=== PATIENT | female | born 1965 | race Caucasian/White ===

== ENCOUNTER → 2020-10-17 20:24 | Outpatient (CLI) | payer MEDICARE, SELFPAY ==
[2020-10-17 20:48] LABS: Basophils # 0.1 K/mm3 (0-0.2); Eosinophils # 0.3 K/mm3 (0.0-0.4); Hematocrit 46.2 % (37.0-47.0); Hemoglobin 15.6 g/dL (12.2-16.2); Lymphocytes # 4.5 K/mm3 (0.7-4.5); Lymphocytes % 48.3 % (10-50); Mean Corpuscular HGB Conc 33.7 g/dL (31.8-35.4); Mean Corpuscular Hemoglobin 32.3 pg (27.0-31.2); Mean Platelet Volume 8.4 fl (7.4-10.4); Monocytes # 0.5 K/mm3 (0.1-1.0); Monocytes % 5.4 % (1.7-9.3); Neutrophils % 42.2 % (37.0-80.0); Platelet Count 254 K/mm3 (142-424); Red Blood Count 4.81 M/mm3 (4.20-5.40); Red Cell Distribution Width 14.2 % (11.5-17.5); White Blood Count 9.4 K/mm3 (4.8-10.8)
[2020-10-17 21:16] LABS: Alanine Aminotransferase 18 U/L (12-78); Albumin Level 4.7 g/dl (3.5-5.0); Albumin/Globulin Ratio 1.3 (1.1-1.8); Alkaline Phosphatase 121 U/L (38-126); Anion Gap 14.1 mEq/L (5-15); Aspartate Amino Transferase 33 U/L (14-36); Bilirubin,Total 0.7 mg/dl (0.2-1.3); Blood Urea Nitrogen 19 mg/dl (7-17); Calcium 10.1 mg/dl (8.4-10.2); Carbon Dioxide 30 mmol/L (22.0-30.0); Chloride 96 mmol/L (98-107); Estimated Glomerular Filt Rate 34 ml/min (>60); GFR (African American) 41 ML/MIN (>60); Globulin 3.5 g/dL (1.3-3.2); Glucose 78 mg/dl (74-100); HDL Cholesterol 44 mg/dl (40-60); Magnesium 2.1 mg/dl (1.6-2.3); Potassium 5.1 mmoL/L (3.5-5.1); Sodium 135 mmol/L (136-145); Total Protein,Serum 8.2 g/dl (6.3-8.2); Triglycerides 236 mg/dl (30-150); Uric Acid 8.6 mg/dl (2.5-6.2); VLDL Cholesterol 47 mg/dL (0-40)
[2020-10-17 21:24] LABS: Chol/HDL Ratio 7.9 (1-3.5); Cholesterol 349 mg/dl (140-200)
[2020-10-17 21:27] LABS: C-Reactive Protein 10.2 mg/L (0-4)
[2020-10-17 21:47] LABS: Thyroid Stimulating Hormone 2.55 uIU/mL (0.465-4.68)
[2020-10-17 22:05] LABS: Vitamin B12 315 pg/mL (239-931)
[2020-10-17 22:12] LABS: Erythrocyte Sedimentation Rate 12 mm/hr (0-30)
[2020-10-19 15:59] LABS: Anti-Centromere B Antibodies <0.2 AI (0.0-0.9); Anti-DNA (DS) Ab Qn 3 IU/mL (0-9); Anti-Jo-1 <0.2 AI (0.0-0.9); Anti-Smith Antibody <0.2 AI (0.0-0.9); Antichromatin Antibodies <0.2 AI (0.0-0.9); Antiscleroderma-70 Antibodies <0.2 AI (0.0-0.9); RNP Antibodies <0.2 AI (0.0-0.9); Sjogren's Anti-SS-A <0.2 AI (0.0-0.9); Sjogren's Anti-SS-B <0.2 AI (0.0-0.9)
[2020-10-23 20:09] LABS: 1,25 Dihydroxy Vitamin D 40 pg/mL (.); 1,25-Dihydroxy, Vitamin D-2 <10 pg/mL (.); 1,25-Dihydroxy, Vitamin D-3 40 pg/mL (.)
== END ==
PROVIDERS: Visit Provider Nurse Practitioner Family
DX: R25.2 Cramp and spasm (principal); E78.2 Mixed hyperlipidemia
CPT/HCPCS: 80053; 80061; 82607; 82652; 83735; 84436; 84443; 84550; 85025; 85651; 86140; 86225; 86235

== ENCOUNTER → 2020-11-07 15:36 | Outpatient (CLI) | payer MEDICARE, SELFPAY ==
--- NOTE | 2020-11-07 15:36 | MM_ITS ---
PROCEDURE: MM DIG SCREENING MAMM BI W/CAD Digital Breast Tomosynthesis Included CLINICAL INDICATION: screening COMPARISON: MG SCREENING DIGITAL W/CAD,BILAT from 11/18/2017 MG DIAGNOSTIC DIGITAL RT(XTRA) from 12/16/2017 MG SCREENING DIGITAL W/CAD,BILAT from 10/26/2019 TECHNIQUE: Standard CC and MLO images and 3D Tomosynthesis was obtained. R2 CAD reviewed. FINDINGS: Average fibroglandular tissue. There are bilateral benign-appearing nodules and benign-appearing calcifications. Asymmetric density is present in the outer aspect of the right breast and is unchanged dating back to 11/18/2017. No malignant appearing mass or malignant-appearing microcalcification. IMPRESSION: Benign findings. BI-RAD Category: 2 Benign Finding FOLLOW-UP: 1 YR 1 Year Follow-up (A letter has been sent to the patient regarding results of the study.) Dictated by: Damion Lockhart MD 11/22/2020 11:54 Damion Lockhart MD in [place] 11/22/2020 11:54
== END ==
PROVIDERS: PCP Nurse Practitioner Family; Visit Provider Nurse Practitioner Family
DX: Z12.31 Encounter for screening mammogram for malignant neoplasm of breast (principal)
CPT/HCPCS: 77063; 77067

== ENCOUNTER → 2020-11-09 05:40 | Outpatient (CLI) | payer MEDICARE, SELFPAY ==
--- NOTE | 2020-11-09 | CA_ITS ---
APPROVED REPORT Exam: Pharmacologic Technologist: tammi rodríguez, Ht: 5 ft 8 in Wt: 183 lbs BSA: 1.97 m2 HR: 72 bpm BP: 147/94 mmHg Indications: CP, SOB Medical History Medications: Omeprazole,,,,, Metoprolol,,,,, Gabapentin,,,,, Crestor,,,,, Baclofen,,,,, BuPROPION,,,,, GlYcopyrrolate,,,,, Cariprazine,,,,, Allergies: Flagyl, Imitrex Cardiac Risk Factors: HTN, Hyperlipidemia, FHX of CAD, Smoking Stress Test Details Test: LEXISCAN HR Resting HR: 76 bpm Max Heart Rate (APMHR): 166 bpm Max HR Achieved: 96 bpm Target HR (85% APMHR): 141 bpm % of APMHR: 57 Recovery HR: 92 bpm BP Resting BP: 147.0/94.0 mmHg Max BP: 161.0/86.0 mmHg Recovery BP: 136.0/89.0 mmHg ECG Resting ECG: NSR Clinical Reason for Termination: Completed Protocol Exercise duration: 04:00 min Highest Stage Achieved: Exercise capacity: 1.0 METs Stress ECG Conclusion No symptoms. No ectopy or arrhythmia. Less than 1.5mm ST depression. Non-diagnostic. Electronically signed by : Justin Ramirez, 11/09/2020 10:25:42
--- NOTE | 2020-11-09 05:55 | NM_ITS ---
APPROVED REPORT Exam: Nuclear Stress Test Indication: chest pain..short of breath..palpitations..fatigue Patient Location: Outpatient Stress Tech: Esthela WinslowSwati NE Tech:ABBY Chu RT(R)(N) Ht: 5 ft 8 in Wt: 185 lbs Bra Size: 40DD HR: 72 bpm BP: 147/94 mmHg BSA: 1.98 m2 BMI: 28.1 History: chest pain..short of breath..palpitations..fatigue Procedure: Patient received a 0.4 mg of intravenous Lexiscan, resting heart rate 72 bpm, resting blood pressure 147/94 mmHg, with Lexiscan maximum heart rate achived was 92 bpm which is Less than 85 % of the maximum predicted heart rate and blood pressure was 152/96 mmHg. With Lexiscan, patient denied any complaint of chest pain. Electrocardiogram Resting electrocardiogram shows sinus rhythm with Lexiscan there is less than 1.[address] segment depression noted from the baseline EKG. The EKG portion of the Lexiscan is nondiagnostic. Cardiac Stress and Resting SPECT Images: Cardiac Stress and Resting SPECT images were obtained using technetium 99m Myoview 10.85 mCi stress and 32.8 mCi at rest. Gated SPECT for analysis of segmental wall motion and calculation of the ejection fraction also done, prone images were also obtained. Cardiac stress and resting SPECT images show uniform myocardial activity without segmental perfusion abnormality, computer derived ejection fraction is 56% with no regional wall motion abnormality, right ventricle is normal size and contractility. Conclusion: 1. The EKG portion of the Lexiscan is nondiagnostic. 2. No scintigraphic evidence of reversible ischemia seen, computer derived ejection fraction is 56% with no regional wall motion abnormality, right ventricle is normal size and contractility. 3. Normal Lexiscan Myoview study. Electronically signed by : Justin Ramirez, 11/09/2020 11:23:16
--- NOTE | 2020-11-09 07:00 | CA_ITS ---
APPROVED REPORT EXAM: Comprehensive 2D, Doppler, and color-flow Echocardiogram Animal Sitter: Radha Bunn RDCS Ht: 5 ft 8 in Wt: 183lbs BSA: 1.97 BP: 132/88 mmHg Indications: CP,ABN EKG,TACHYCARDIA,CAD 2D Dimensions LVOT 2.03 cm (M/F) 1.5-2.5 M-Mode Dimensions RVDd 2.19 cm (0.9-2.6) LA Diam 3.91 cm (1.9-4.0) LVDd 4.96 cm (3.5-5.7) Ao Diam 3.23 cm (2.0-3.7) LVDs 3.63 cm (3.5-5.7) IVSd 0.90 cm (0.6-1.1) PWd 1.24 cm (0.6-1.1) EF (Teich) 52.20% FS 26.80% EDV (Teich) 116.10 mL ESV (Teich) 55.50 mL LV Diastology E Decel Time 277.00 (160-240 msec) E/A Ratio 0.9 MED E' 6.20 (< 7 cm/sec) E'/MED E' Ratio 11.48 (>14) LAT E' 8.00 (<10 cm/sec) E/LAT E' Ratio 8.90 (>14) Mitral Valve MV E Max Corey. 71.00 (40-130 cm/s) MV A Velocity 82.00 (40-130 cm/s) E/A Ratio 0.87 MV Decel. Time 277.00 (160-240 ms) MV PHT 81.00 ms Left Ventricle Left atrium is mildly enlarged, left ventricle is normal size, left ventricle wall thickness is upper limit is normal, there is preserved left ventricular systolic function, visually estimated ejection fraction 55% with no regional wall motion abnormality, grade 1 diastolic dysfunction seen without tissue Doppler evidence of raise left atrial pressure. Right Ventricle Right atrium and right ventricle are normal size and contractility. Aortic Valve Aortic valve is minimally thickened and fibrosed there is no aortic stenosis or aortic insufficiency. Mitral Valve Mitral valve is minimally thickened, there is mild mitral regurgitation. Tricuspid Valve Tricuspid valve grossly normal, there is trace tricuspid regurgitation, tricuspid regurgitation jet velocity is inadequate for calculation of the right ventricular systolic pressure. Pulmonic Valve Pulmonic valve is poorly visualized. Great Vessels Aortic root is normal size. Pericardium No significant pericardial effusion noted. Conclusion 1. Mildly enlarged left atrium, normal left ventricular size, visually estimated ejection fraction 55% with no regional wall motion abnormality, grade 1 diastolic dysfunction seen without tissue Doppler evidence of raise left atrial pressure. 2. Mild mitral and trace tricuspid regurgitation. 3. No significant pericardial effusion noted. Electronically signed by : Justin Ramirez, 11/09/2020 10:32:44
== END ==
PROVIDERS: PCP Nurse Practitioner Family; Visit Provider Urology
DX: E78.5 Hyperlipidemia, unspecified (principal); I10 Essential (primary) hypertension; I51.7 Cardiomegaly; R00.0 Tachycardia, unspecified; R06.00 Dyspnea, unspecified; R07.9 Chest pain, unspecified; R94.31 Abnormal electrocardiogram [ECG] [EKG]
CPT/HCPCS: 78452; 87086; 93017; 93306; A9502; J2785

== ENCOUNTER → 2020-11-09 14:23 | Outpatient (CLI) | payer MEDICARE, SELFPAY | PROVIDERS: Visit Provider Nurse Practitioner Family | DX: R39.198 Other difficulties with micturition (principal) | CPT/HCPCS: 87086 ==

== ENCOUNTER → 2020-11-30 14:57 | Outpatient (CLI) | payer MEDICARE, SELFPAY ==
--- NOTE | 2020-11-30 14:57 | US_ITS ---
APPROVED REPORT Exam Type: Lower Extremity Segmental Pressures Clinical Associate: Jyothi Rooney RVT Indications Claudication: Bilaterally Current Smoker CAD Risk Factors Hypertension CAD Hyperlipidemia Current Smoker Pressures/Indices Right Indices Left Indices Brachial 79.00 mmHg Brachial 110.00 mmHg Low Thigh 93.00 mmHg 0.85 Low Thigh 103.00 mmHg 0.94 Calf 90.00 mmHg 0.82 Calf 88.00 mmHg 0.80 Ankle(PT) 98.00 mmHg 0.89 Ankle(PT) 93.00 mmHg 0.85 Ankle(DP) 94.00 mmHg 0.85 Ankle(DP) 91.00 mmHg 0.83 Digit 86.00 mmHg 0.78 Digit 95.00 mmHg 0.86 Findings RT HOLDEN:0.89 LT HOLDEN:0.85 RT TBI:0.78 LT TBI:0.86 DAMPENED WAVEFORMS BILATERAL DAMPENED PULSES BILATERAL MIld bilateral arterial disease RT BRACHIAL B/P LOWER THAN LEFT MANUAL B/P WAS ATTEMPTED WITH NO SUCCESS, possibly related to occuded or stenotic right sublavian or brachial artery Conclusion RT HOLDEN:0.89 LT HOLDEN:0.85 RT TBI:0.78 LT TBI:0.86 DAMPENED WAVEFORMS BILATERAL DAMPENED PULSES BILATERAL RT BRACHIAL B/P LOWER THAN LEFT MANUAL B/P WAS ATTEMPTED WITH NO SUCCESS, ? SUBCLAVIAN STEAL ON THE RIGHT Electronically signed by : Damion Lockhart MD 12/03/2020 16:20:32
== END ==
PROVIDERS: PCP Nurse Practitioner Family; Visit Provider Urology
DX: R07.9 Chest pain, unspecified; R06.00 Dyspnea, unspecified; R94.31 Abnormal electrocardiogram [ECG] [EKG]; I51.7 Cardiomegaly; R00.0 Tachycardia, unspecified; I70.213 Atherosclerosis of native arteries of extremities with intermittent claudication, bilateral legs; E78.5 Hyperlipidemia, unspecified; R40.0 Somnolence; Z72.0 Tobacco use
CPT/HCPCS: 93923

== ENCOUNTER → 2020-12-21 13:05 | Outpatient (CLI) | payer MEDICARE, SELFPAY ==
[2020-12-21 13:51] LABS: Basophils # 0.1 K/mm3 (0-0.2); Basophils % 1.2 % (0.1-2.0); Eosinophils # 0.3 K/mm3 (0.0-0.4); Eosinophils % 3.3 % (0.1-12.0); Hematocrit 43.6 % (37.0-47.0); Hemoglobin 14.3 g/dL (12.2-16.2); Lymphocytes # 3.4 K/mm3 (0.7-4.5); Lymphocytes % 36.9 % (10-50); Mean Corpuscular HGB Conc 32.9 g/dL (31.8-35.4); Mean Corpuscular Hemoglobin 32.1 pg (27.0-31.2); Mean Corpuscular Volume 97.5 fl (81-99); Mean Platelet Volume 8.8 fl (7.4-10.4); Monocytes # 0.5 K/mm3 (0.1-1.0); Monocytes % 5.1 % (1.7-9.3); Neutrophils # 4.9 K/mm3 (1.8-7.8); Neutrophils % 53.5 % (37.0-80.0); Platelet Count 243 K/mm3 (142-424); Red Blood Count 4.47 M/mm3 (4.20-5.40); Red Cell Distribution Width 13.9 % (11.5-17.5); White Blood Count 9.2 K/mm3 (4.8-10.8)
[2020-12-21 14:15] LABS: Chloride 104 mmol/L (98-107); Potassium 4.1 mmoL/L (3.5-5.1); Sodium 139 mmol/L (136-145)
[2020-12-21 14:18] LABS: Anion Gap 14.1 mEq/L (5-15); Blood Urea Nitrogen 15 mg/dl (7-17); Calcium 9.6 mg/dl (8.4-10.2); Carbon Dioxide 25 mmol/L (22.0-30.0); Estimated Glomerular Filt Rate 47 ml/min (>60); GFR (African American) 57 ML/MIN (>60); Glucose 111 mg/dl (74-100)
== END ==
PROVIDERS: PCP Nurse Practitioner Family; Visit Provider Nurse Practitioner Family
DX: E78.49 Other hyperlipidemia (principal); G45.8 Other transient cerebral ischemic attacks and related syndromes; I10 Essential (primary) hypertension; I73.9 Peripheral vascular disease, unspecified; I77.1 Stricture of artery; R00.2 Palpitations; R06.83 Snoring; R40.0 Somnolence; Z72.0 Tobacco use
CPT/HCPCS: 36415; 80048; 85025; U0003

== ENCOUNTER 2020-12-24 17:36 | Inpatient (IN) | payer MEDICARE, SELFPAY ==
[2020-12-24] VITALS (52 sets, daily range): BP systolic 74–168; BP diastolic 48–109; PULSE 83–137; RESP 16–24; TEMP 36.7–37.1; O2SAT 90–106; BMI 27.9; BMI 29.8
--- NOTE | 2020-12-24 07:12 | IR_ITS ---
APPROVED REPORT Patient Location: Outpatient PROCEDURES Right femoral arterial access Right retrograde femoral angiogram Left femoral arterial access Left retrograde femoral angiogram Catheter placed in the abdominal aorta Abdominal aortogram Repositioning of the catheter in the abdominal aorta Bilateral iliofemoral angiogram Bare-metal stent deployment to the right common iliac artery Bare-metal stent deployment to the right external iliac artery Bare-metal stent deployment to the left common iliac artery Bare-metal stent deployment to the left external iliac artery Catheter placement in the right axillary artery Right axillary artery angiogram Catheter placement in the right brachial artery Right brachial artery angiogram Drug-coated balloon angioplasty to the right brachial artery Bare-metal stent deployment to the right brachial artery Placement of a coated stent to the right external iliac artery INDICATION [place] claudication class III, Bilateral aortoiliac disease, Abnormal HOLDEN, Subtotally occluded bilateral external iliac arteries, Atheromatous plaque in disease of the bilateral common iliac arteries, Occluded right brachial artery, Symptomatic right arm ischemia, Perforated right external iliac artery Informed consent was obtained prior to the procedure. COMPLICATIONS None Estimated Blood Loss: Less than 10 mls TECHNIQUE 1% lidocaine used anesthetize right groin the right femoral artery was accessed via the Salinger technique. Initially there was difficulty passing wire beyond the proximal portion of the external iliac artery. Because of this 1% lidocaine was used to anesthetize the left groin and the left femoral artery was accessed via the Salinger technique. With some difficulty the artery was eventually accessed and a Glidewire was advanced through the external and common iliac artery and into the aorta. A 6 B[place]wanan sheath was placed in the left common femoral artery. Retrograde angiography was performed. Catheter was placed in the abdominal aorta and abdominal aortography was performed. With repositioning of the catheter and then bilateral iliofemoral angiography. The right femoral artery was then accessed via the Salinger technique and a 6 [place]an dilator was placed in the right common femoral artery. An advantage wire was then placed into this dilator and then used to push through the subtotal occlusion through the external iliac artery into the common iliac artery and then to the abdominal aorta. Therapeutic heparin was administered. A 6 mm x 80 mm balloon was used to predilate the external iliac artery and the common iliac artery. A 7 mm x 120 mm self-expanding bare-metal stent was placed in the right external iliac artery extending into the proximal portion of the right common femoral artery. Following this an 8 mm x 37 mm balloon mounted stent was placed in the distal common iliac artery extending into the proximal portion of the 7 mm stent and then deployed at 14 ambika. The artery was open with excellent angiographic results. At this point a rim catheter was placed in the distal abdominal aorta and the advantage wire was used to traverse the occlusion in the left iliofemoral vessel. The advantage wire was placed into the proximal superficial femoral artery. A 6 mm balloon was used to predilate the stenosis in the external iliac artery and a 7 mm x 27 mm self-expanding stent was placed in the proximal portion of the left common femoral artery extending back into the left external iliac artery into the common iliac artery. An 8 mm x 37 mm balloon mounted stent was then placed in the left common iliac artery and deployed at 14 ambika. 7 mm balloons were then dilated in the 7 mm stents in order t
[2020-12-24 14:46] LABS: Microscopic, Urine URINE MICROSCOPIC (MICROSCOPIC)
[2020-12-24 14:50] LABS: Appearance,Urine CLEAR (Clear); Bilirubin,Urine Negative (Negative); Blood, Urine 2+ (Negative); Color,Urine STRAW (Yellow); Glucose,Urine (UA) Negative (Negative); Ketones,Urine Negative (Negative); Leukocyte Esterase,Urine Negative (Negative); Nitrate,Urine Negative (Negative); PH,Urine 5.5 (5.0-8.5); Protein,Urine Negative (Negative); Specific Gravity, Urine <= 1.005 (1.005-1.030); Urobilinogen,Urine 0.2 EU/dl (0.2)
[2020-12-24 14:59] LABS: Bacteria,Urine Trace /lpf; Squamous Epithelial Cell,Urine Occasional #/hpf (0-5)
--- NOTE | 2020-12-24 19:14 | HMH.PHAVTE ---
[facility] Pharmacy VTE Monitoring - Patient Demographics Admission date: 12/24/20 Report Date: 12/24/20 Time: 19:15 Allergies/Adverse Reactions: Patient Allergies metronidazole [From Flagyl] Allergy (Severe, Verified 12/24/20 18:10) Swelling of Lip/Tongue/Throat sumatriptan [From Imitrex] Allergy (Severe, Verified 12/24/20 18:10) stopped breathing Height: 1.73 m Weight: 89.386 kg - VTE Risk Clinical Trial Participant: No - Prophylaxis VTE Prophylaxis Ordered?: Yes Types of VTE Prophylaxis: TEDS Knee High
--- NOTE | 2020-12-24 19:23 | HMH.PHAINT ---
home medication list verified using list from [facility]
[2020-12-25] VITALS (12 sets, daily range): BP systolic 87–137; BP diastolic 59–82; PULSE 97–130; RESP 16–20; TEMP 36.8–39.7; O2SAT 91–100
--- NOTE | 2020-12-25 03:22 | PC.NURSE ---
Pt went to sit up on side of bed and became a nauseated and vomited bile 1x, zofran administered. Afterwards, she requested to go the BR for a BM. She tolerated ambulation well. Inman cath removed at this time without difficulty. Pt tollerating ice chips at this time. Cath sites are dry, bruising surrounding dressings, and pelvic/low ABD area soft. SBP > 65 thus far. HR has trended down post Metoprolol dosing, 90s-110 at rest.
--- NOTE | 2020-12-25 06:00 | PC.NURSE ---
Pt is A&Ox4 she has ambulated to the BR 2x with staff assist. Pt reports soreness to groin sites, offered PRN Percocet but pt refused. Pt has drank water and ate ice chips on several occasions. No bleeding noted to cath sites or bruising to flanks/pt's back. Low ADB/pelvic regions soft, no hematoma noted, but bruising is present to skin surround dressings. Pt remains afebrile. Call truong within reach.
[2020-12-25 07:55] LABS: Basophils # 0.1 K/mm3 (0-0.2); Basophils % 0.4 % (0.1-2.0); Chloride 105 mmol/L (98-107); Eosinophils % 0.1 % (0.1-12.0); Hematocrit 24.5 % (37.0-47.0); Hemoglobin 8.2 g/dL (12.2-16.2); Lymphocytes % 24.5 % (10-50); Mean Corpuscular HGB Conc 33.4 g/dL (31.8-35.4); Mean Corpuscular Hemoglobin 32.2 pg (27.0-31.2); Mean Corpuscular Volume 96.3 fl (81-99); Mean Platelet Volume 8.7 fl (7.4-10.4); Monocytes # 0.7 K/mm3 (0.1-1.0); Monocytes % 5.3 % (1.7-9.3); Neutrophils # 8.6 K/mm3 (1.8-7.8); Neutrophils % 69.7 % (37.0-80.0); Platelet Count 212 K/mm3 (142-424); Potassium 5.3 mmoL/L (3.5-5.1); Red Blood Count 2.54 M/mm3 (4.20-5.40); Red Cell Distribution Width 13.9 % (11.5-17.5); Sodium 135 mmol/L (136-145); White Blood Count 12.4 K/mm3 (4.8-10.8)
[2020-12-25 07:58] LABS: Anion Gap 12.3 mEq/L (5-15); Blood Urea Nitrogen 16 mg/dl (7-17); Calcium 8.1 mg/dl (8.4-10.2); Carbon Dioxide 23 mmol/L (22.0-30.0); Creatinine Clearance Estimated 57 mL/min (50-200); Estimated Glomerular Filt Rate 34 ml/min (>60); GFR (African American) 41 ML/MIN (>60); Glucose 110 mg/dl (74-100)
--- NOTE | 2020-12-25 09:34 | CA_ITS ---
APPROVED REPORT [employer] Consultant: Stacy Nance, [employer] Indications pt had a cath yesterday with stents placed in bilateral lower extremities, pt groin bruised and tender to touch. Pt moved thru-out exam. Surgery/Intervention Pt had multiple stents placed in bilateral lower extremities yesterday. Findings Groin: Right Negative Positive for Hematoma Findings No evidence of pseudoaneurysm or AV fistula of the right groin. Hematoma of the right groin, measuring 1.7cm x 4.18cm cm in size. Conclusion No evidence of pseudoaneurysm or AV fistula of the right groin. Hematoma of the right groin, measuring 1.7cm x 4.18cm cm in size. Electronically signed by : Damion Lockhart MD 12/26/2020 16:24:00
--- NOTE | 2020-12-25 10:17 | HMH.HP ---
*Admission Date: 12/24/20 *Chief complaint: Right groin pain *History of present illness: This is a 55-year-old white female who came in as an outpatient yesterday and underwent bilateral iliofemoral runoff. The patient had reconstruction of her bilateral iliacs as well as stenting to her right brachial artery in her upper extremity. Following the procedure the patient did have a retroperitoneal bleed from her right iliac artery. So the patient subsequently had a coated stent placed to the right external iliac artery to seal a stent induced perforation. The patient is complaining of pain in her right groin and her right foot. She states that she was having the right groin pain prior to coming into the hospital. She states that she hit her groin area before the intervention and the pain has just now significantly worsened. She is also complaining of pain in her right foot which she states is new. On palpation the patient states that she is having severe pain. Her right foot is cold to touch. I cannot palpate or Doppler a pulse in the right lower extremity. I cannot palpate a pulse in her right femoral artery either. She denies any chest pain or pressure. She denies any shortness of breath or edema. She denies any fever, chills, nausea, vomiting, diarrhea, PND or orthopnea. Interventional procedure as noted below (Per Tariq Perez APRN): ANGIOGRAPHIC RESULTS The infrarenal abdominal aorta is mildly atheromatous but patent. The right common iliac artery has distal 50% stenosis with a patent internal iliac artery. The right external iliac artery is subtotally occluded. The right common femoral artery is atheromatous with at least 50% stenosis The left common iliac artery has 50 to 60% distal stenosis with the internal iliac artery widely patent and the external iliac artery subtotally occluded. The left common femoral artery reconstitutes via collaterals in its mid to distal segment The right subclavian artery and axillary arteries are patent The right brachial artery is abruptly occluded IMPRESSION Bilateral aortoiliac disease as described above Successful stenting of the right common and external iliac artery as described above reducing the subtotal occlusion to 0% Successful stenting of the left common and external iliac artery as described above reducing the subtotal occlusions to 0% Occlusion of the right brachial artery Successful drug-coated balloon angioplasty of the right brachial artery occlusion followed by bare-metal stent deployment reducing the 100% occlusion to 0% Successful placement of a coated stent in the right external iliac artery to seal a stent induced perforation PLAN 1. Aspirin Plavix 2. Immediate cessation of tobacco products 3. LDL less than 55 4. Cardiac rehabilitation 5. Avoidance of tobacco products 6. Risk factor modification [facility] History I have reviewed the patient's past medical history: Yes Medical History: Reports:: Anxiety, Coronary Artery Disease, Depression, Hyperlipidemia, Hypertension Denies:: Cancer, Diabetes Mellitus Type 1, Diabetes Mellitus Type 2, Internal Pacemaker, MRSA, Seizures *Have you ever received a pneumonia vaccine?: No *Have you received a flu vaccine this season?: No Other Medical History: Reports: Hormone Therapy Other Surgeries: Yes: Angioplasty, Colonoscopy, Other. No: Pacemaker Amputation: No Fractures: Yes - *Social History Last grade of school completed: 9th or 10th Smoking Status: Current every day smoker Tobacco Type: cigarettes # Packs/Day (cigarettes): 1 Alcohol Intake: never Alcohol Intake Frequency:: 0-2 drinks per day Substance Use Type: denies use *Occupational Status:: unemployed Housing: house Household Members: none *Travel in the last 8 weeks: Inside the [place] - Psychiatric History Pschychiatric History:: Reports:: Anxiety, Depression Family Hx:: Diabetes, Hypertension, Kidney Disease, Heart Attack, Hyperlipidemia Review of Systems
--- NOTE | 2020-12-25 10:28 | HMH.PHAHEP ---
[facility] Pharmacy Heparin Dosing - Demographic Data Admission date:: 12/25/20 Date: 12/25/20 Time: 10:28 Allergies/Adverse Reactions: Allergies Allergy/AdvReac Type Severity Reaction Status Date / Time metronidazole [From Flagyl] Allergy Severe Swelling Verified 12/24/20 18:10 of Lip/Tongue/Throat sumatriptan [From Imitrex] Allergy Severe stopped Verified 12/24/20 18:10 breathing Height: 1.73 m Weight: 89.4 kg - Indication Medication therapy:: Heparin Patient Problems: Current Active Problems Brachial artery stenosis, right (Acute) Retroperitoneal bleed (Acute) Blood loss anemia (Acute) Coronary artery disease (Chronic) Abnormal ankle brachial index (HOLDEN) (Acute) PAD (peripheral artery disease) (Acute) Subclavian steal syndrome (Acute) Claudication (Acute) Subclavian arterial stenosis (Acute) Tobacco use (Chronic) Hyperlipidemia (Chronic) Hypertension (Chronic) Abnormal electrocardiography (Acute) Sinus tachycardia (Acute) CVA?: No Bleeding problem?: Yes Kidney disease?: No [place]?: Yes Desired PTT range:: 50-70 seconds - Labs Anticoagulation Lab Results:: 12/25/20 07:00 Hgb 8.2 L Hct 24.5 L Plt Count 212 - Monitoring Dose Monitor 1 Date: 12/25/20 Time: 12:00 PTT Result:: 24.2 Infusion Rate:: 32 ML/HR (1600 UNITS/HR) 7000 UNIT BOLUS Dose Monitor 2 Date: 12/25/20 Time: 14:15 PTT Result:: 117.2 Infusion Rate:: DOSE REDUCED TO 26 ML/HR (1300 UNITS/HR) Dose Monitor 3 Date: 12/25/20 Time: 19:00 PTT Result:: 27.1 Infusion Rate:: RESUME 1600 UNITS/HR (32 ML/HR) Dose Monitor 4 Date: 12/26/20 Time: 05:47 PTT Result:: 53.9 Infusion Rate:: STOPPED BY Tariq VENTURA - Lolis Measures Is INR > or = 2 at discharge?: No Most Recent Labs:: Laboratory Results - last 24 hr 12/24/20 14:43: Urine Color Straw, Urine Appearance Clear, Urine pH 5.5, Ur Specific [place] <= 1.005, Urine Protein Negative, Urine Glucose (UA) Negative, Urine Ketones Negative, Urine Blood 2+, Urine Nitrate Negative, Urine Bilirubin Negative, Urine Urobilinogen 0.2, Ur Leukocyte Esterase Negative, Urine RBC 3-5, Ur Squamous Epith Cells Occasional, Urine Bacteria Trace 12/25/20 07:00: WBC 12.4 H, RBC 2.54 L, Hgb 8.2 L, Hct 24.5 L, MCV 96.3, MCH 32.2 H, MCHC 33.4, RDW 13.9, Plt Count 212, MPV 8.7, Neut % (Auto) 69.7, Lymph % (Auto) 24.5, [place] % (Auto) 5.3, Eos % (Auto) 0.1, Baso % (Auto) 0.4, Neut # (Auto) 8.6 H, Lymph # (Auto) 3.0, [place] # (Auto) 0.7, Eos # (Auto) 0.0, Baso # (Auto) 0.1 12/25/20 07:00: Sodium 135 L, Potassium 5.3 H, Chloride 105, Carbon Dioxide 23, Anion Gap 12.3, BUN 16, Creatinine 1.60 H, Estimated Creat Clear 57, Estimated GFR 34 L, Est GFR ( Amer) 41 L, Glucose 110 H, Calcium 8.1 L Were Heparin and Warfarin started on the same day?: No If not, why?: HEPARIN DRIP STOPPED-BLEED
--- NOTE | 2020-12-25 11:04 | HMH.PNCARD ---
Subjective Date: 12/25/20 Time: 09:45 Principal diagnosis: retroperitoneal bleed Interval history: This is a 55-year-old white female who came in as an outpatient yesterday and underwent bilateral iliofemoral runoff. The patient had reconstruction of her bilateral iliacs as well as stenting to her right brachial artery in her upper extremity. Following the procedure the patient did have a retroperitoneal bleed from her right iliac artery. So the patient subsequently had a coated stent placed to the right external iliac artery to seal a stent induced perforation. The patient is complaining of pain in her right groin and her right foot. She states that she was having the right groin pain prior to coming into the hospital. She states that she hit her groin area before the intervention and the pain has just now significantly worsened. She is also complaining of pain in her right foot which she states is new. On palpation the patient states that she is having severe pain. Her right foot is cold to touch. I cannot palpate or Doppler a pulse in the right lower extremity. I cannot palpate a pulse in her right femoral artery either. She denies any chest pain or pressure. She denies any shortness of breath or edema. She denies any fever, chills, nausea, vomiting, diarrhea, PND or orthopnea. Interventional procedure as noted below: ANGIOGRAPHIC RESULTS The infrarenal abdominal aorta is mildly atheromatous but patent. The right common iliac artery has distal 50% stenosis with a patent internal iliac artery. The right external iliac artery is subtotally occluded. The right common femoral artery is atheromatous with at least 50% stenosis The left common iliac artery has 50 to 60% distal stenosis with the internal iliac artery widely patent and the external iliac artery subtotally occluded. The left common femoral artery reconstitutes via collaterals in its mid to distal segment The right subclavian artery and axillary arteries are patent The right brachial artery is abruptly occluded IMPRESSION Bilateral aortoiliac disease as described above Successful stenting of the right common and external iliac artery as described above reducing the subtotal occlusion to 0% Successful stenting of the left common and external iliac artery as described above reducing the subtotal occlusions to 0% Occlusion of the right brachial artery Successful drug-coated balloon angioplasty of the right brachial artery occlusion followed by bare-metal stent deployment reducing the 100% occlusion to 0% Successful placement of a coated stent in the right external iliac artery to seal a stent induced perforation PLAN 1. Aspirin Plavix 2. Immediate cessation of tobacco products 3. LDL less than 55 4. Cardiac rehabilitation 5. Avoidance of tobacco products 6. Risk factor modification Exam Vital signs and Labs for Last 24 Hours: Temp Pulse Resp BP Pulse Ox 98.9 F 125 H 20 137/79 93 L 12/25/20 08:00 12/25/20 08:00 12/25/20 08:00 12/25/20 08:00 12/25/20 08:00 Laboratory Results - last 24 hr 12/24/20 14:43: Urine Color Straw, Urine Appearance Clear, Urine pH 5.5, Ur Specific [place] <= 1.005, Urine Protein Negative, Urine Glucose (UA) Negative, Urine Ketones Negative, Urine Blood 2+, Urine Nitrate Negative, Urine Bilirubin Negative, Urine Urobilinogen 0.2, Ur Leukocyte Esterase Negative, Urine RBC 3-5, Ur Squamous Epith Cells Occasional, Urine Bacteria Trace 12/25/20 07:00: WBC 12.4 H, RBC 2.54 L, Hgb 8.2 L, Hct 24.5 L, MCV 96.3, MCH 32.2 H, MCHC 33.4, RDW 13.9, Plt Count 212, MPV 8.7, Neut % (Auto) 69.7, Lymph % (Auto) 24.5, [place] % (Auto) 5.3, Eos % (Auto) 0.1, Baso % (Auto) 0.4, Neut # (Auto) 8.6 H, Lymph # (Auto) 3.0, [place] # (Auto) 0.7, Eos # (Auto) 0.0, Baso # (Auto) 0.1 12/25/20 07:00: Sodium 135 L, Potassium 5.3 H, Chloride 105, Carbon Dioxide 23, Anion Gap 12.3, BUN 16, Creatinine 1.60 H, Estimated Creat Clear 57, Estimated GFR 34 L, Est GFR (Af
--- NOTE | 2020-12-25 11:13 | CT_ITS ---
PROCEDURE: CT HEAD/BRAIN WO CON CLINICAL INDICATION: loss of vision COMPARISON: No exams were available for comparison TECHNIQUE: Axial images obtained. All CT scans at the facility use one or more dose reduction, viz: automated exposure control, ma/kV adjustment per patient size (including targeted exams where dose is matched to indication, i.e. head), or iterative reconstruction technique. FINDINGS: No midline shift, mass effect, intracranial hemorrhage, hydrocephalus, or extra-axial fluid collection is evident. The calvarium has an unremarkable appearance. No mastoid effusion. Mucosal thickening involves the ethmoid sinuses and left frontal sinus. Mild mucosal thickening of the right maxillary sinus. IMPRESSION: No acute intracranial finding Mild sinus disease Dictated by: Damion Lockhart MD 12/25/2020 13:32 Damion Lockhart MD in [place] 12/25/2020 13:32
[2020-12-25 12:05] LABS: Activated Partial Thrombo Time 24.2 seconds (22.5-28.5)
[2020-12-25 14:08] LABS: CATHL Activated Clotting Time 313 SEC (74-125)
[2020-12-25 14:09] LABS: CATHL Activated Clotting Time 133 SEC (74-125)
[2020-12-25 14:10] LABS: CATHL Activated Clotting Time 341 SEC (74-125)
[2020-12-25 14:11] LABS: CATHL Activated Clotting Time 305 SEC (74-125)
--- NOTE | 2020-12-25 14:16 | PC.NURSE ---
Addendum entered by Kim Murphy RN 12/26/20 10:25: 1130 TIME CORRECTION FOR PORTION OF DOCUMENTATION: PT TAKEN TO CT 1200 1200 TIME CORRECTION OF DOCUMENTATION OCCURRED 1245 135 PARTIAL TIME CORRECTION IS 1359 Original Note: 0800 PT REPORTS DIFFICULTY SEEING. PT IS RUNNING INTO THINGS. DARK PURPLE BRUISING NOTED TO BILATERAL GROIN AND PUBIC AREA. UNABLE TO FIND PEDAL PULSE IN R FOOT. NO C/O PAIN, VSS, ALERT AND ORIENTED. 1116 [facility] AT BEDSIDE. UPDATED ON NO PEDAL PULSE R FOOT, BRUISING, VISION CHANGES. CT HEAD ORDERED. 1130 PT RECALLED THAT THESE VISION CHANGES HAD OCCURRED BEFORE WHEN TOOK BACLOFEN. DR SANDERSON OFFICE NOTIFIED SPOKE WITH NURSE TO REPORT. PT TAKEN TO CT BY RADIOLOGY. 1132 LAB AT BEDSIDE TO DRAW BLOOD FOR TYPE AND CROSS, THIS NURSE NOTIFIED LAB [address] CROWLEY AND [facility] AT BEDSIDE. DR CROWLEY FOUND PULSES AND IS FINE WITH CIRCULATION IN R FOOT LEG. 1200 ATTEMPTS TO START ANOTHER IV FOR BLOOD ADMINISTRATION AND HEPARIN/FLUID INFUSION. MULTIPLE STICKS WITH NO RESULTS. CALLED KHADIJAH FOR US GUIDED IV WITH SEVERAL ATTEMPTS, NO SUCCESS. NO IV STICKS IN R ARM ALLOWED PER CARDIOLOGY. 1330 NOTIFIED [facility] IF WANTED HEPARIN OR BLOOD STARTED FIRST. WANTS HEPARIN FIRST. HEPARIN BOLUS GIVEN AND DRIP STARTED. 1352 BRAULIO GALICIA CALLED FOR UPDATED, UPDATE GIVEN. BLACLOFEN D/C'D. POOR VISION CONTINUES WITH PT. NO NEW ORDERS. 135 TC TO [facility] TO UPDATE NO MORE IV'S ABLE TO BE STARTED. SHE SPOKE WITH DR. CROWLEY AND WE ARE TO DRAW NEW CBC AND CALL WITH RESULTS. 1412 LAB AT BEDSIDE FOR CBC DRAW. AWAITING RESULTS.
[2020-12-25 14:57] LABS: Activated Partial Thrombo Time 117.2 seconds (22.8-30.6)
[2020-12-25 15:05] LABS: Basophils # 0.1 K/mm3 (0-0.2); Basophils % 0.5 % (0.1-2.0); Eosinophils # 0.1 K/mm3 (0.0-0.4); Eosinophils % 0.4 % (0.1-12.0); Hematocrit 21.7 % (37.0-47.0); Lymphocytes # 4.1 K/mm3 (0.7-4.5); Lymphocytes % 24.9 % (10-50); Mean Corpuscular HGB Conc 32.7 g/dL (31.8-35.4); Mean Corpuscular Hemoglobin 31.7 pg (27.0-31.2); Mean Platelet Volume 8.6 fl (7.4-10.4); Monocytes # 0.9 K/mm3 (0.1-1.0); Monocytes % 5.3 % (1.7-9.3); Neutrophils # 11.3 K/mm3 (1.8-7.8); Neutrophils % 68.9 % (37.0-80.0); Platelet Count 215 K/mm3 (142-424); Red Blood Count 2.24 M/mm3 (4.20-5.40); White Blood Count 16.4 K/mm3 (4.8-10.8)
[2020-12-25 15:07] LABS: Hemoglobin 7.1 g/dL (12.2-16.2); MANUAL DIFFERENTIAL MANUAL DIFFERENTIAL (MANUAL DIFF)
[2020-12-25 15:16] LABS: Eosinophils % 1 % (0-3); Lymphocytes % 34 % (10-50); Monocytes % 1 % (2-9); Neutrophils % 64 % (42-76); Platelet Estimate Normal; RBC Morphology Normal; Total Cells Counted 100
--- NOTE | 2020-12-25 15:34 | PC.NURSE ---
1335 PT C/O SOA, WHEEZING T/O. NOTIFIED [facility] AND OK TO GIVE ALBUTEROL NEB TX. RESPIRATORY THERAPY NOTIFIED. 1341 RESPIRATORY AT BEDSIDE PERFORMING BREATHING TX. 1500 PT UP IN CHAIR, HEPARIN STILL INFUSING. 1530 DENTAL SALES REPRESENTATIVE RN TO FLOOR AND STARTED IV IN R HAND. DR CROWLEY TOLD HER THAT IT WAS OK TO START IV IN R LOWER ARM. CARE TRANSFERRED AND REPORT GIVEN TO Mg VELASQUEZ RN.
--- NOTE | 2020-12-25 16:10 | PC.NURSE ---
REPORTED TO Laura VELASQUEZ RN
--- NOTE | 2020-12-25 16:26 | PC.NURSE ---
1600 TEMP 103.4 PT INCREASINGLY CONFUSED,KHOI NOTIFIED.
--- NOTE | 2020-12-25 18:11 | XR_ITS ---
PROCEDURE INFORMATION: Exam: XR Chest Exam date and time: 12/25/2020 6:11 PM Age: 55 years old Clinical indication: Wheezing; Additional info: Wheezes TECHNIQUE: Imaging protocol: XR of the chest. Views: 1 view. COMPARISON: No relevant prior studies available. FINDINGS: Lungs: Atelectatic changes noted within both lung bases. Pleural spaces: There is no evidence of pneumothorax. There are no pleural effusions present. Heart/Mediastinum: Unremarkable. No cardiomegaly. Diaphragm: There is nonspecific elevation of the right hemidiaphragm. Bones/joints: Unremarkable. IMPRESSION: Atelectatic changes noted within both lung bases.
[2020-12-25 19:34] LABS: Activated Partial Thrombo Time 27.1 seconds (22.8-30.6)
[2020-12-26] VITALS (38 sets, daily range): BP systolic 79–143; BP diastolic 52–91; PULSE 68–130; RESP 14–20; TEMP 36.3–38.3; O2SAT 88–100; BMI 29.7
[2020-12-26 00:21] LABS: Basophils # 0.1 K/mm3 (0-0.2); Basophils % 0.4 % (0.1-2.0); Eosinophils # 0.1 K/mm3 (0.0-0.4); Eosinophils % 0.3 % (0.1-12.0); Lymphocytes # 5.1 K/mm3 (0.7-4.5); Mean Corpuscular HGB Conc 31.3 g/dL (31.8-35.4); Mean Corpuscular Hemoglobin 31.1 pg (27.0-31.2); Mean Corpuscular Volume 99.6 fl (81-99); Mean Platelet Volume 8.9 fl (7.4-10.4); Monocytes # 0.9 K/mm3 (0.1-1.0); Monocytes % 5.4 % (1.7-9.3); Neutrophils # 10.4 K/mm3 (1.8-7.8); Neutrophils % 62.9 % (37.0-80.0); Platelet Count 193 K/mm3 (142-424); Red Blood Count 2.07 M/mm3 (4.20-5.40); Red Cell Distribution Width 14.2 % (11.5-17.5); White Blood Count 16.5 K/mm3 (4.8-10.8)
[2020-12-26 00:45] LABS: Hematocrit 20.6 % (37.0-47.0); Hemoglobin 6.4 g/dL (12.2-16.2)
[2020-12-26 00:46] LABS: MANUAL DIFFERENTIAL MANUAL DIFFERENTIAL (MANUAL DIFF)
[2020-12-26 02:11] LABS: Lymphocytes % 20 % (10-50); Monocytes % 5 % (2-9); Neutrophils % 75 % (42-76); Total Cells Counted 100
[2020-12-26 02:12] LABS: Anisocytosis 1+; Platelet Estimate Normal
--- NOTE | 2020-12-26 04:06 | PC.NURSE ---
MD Mills was notified by prior nurse that pt was febrile and was told to hold on blood transfusion.Temp was noted to be 103. 2. Pt was treated for fever by prior nurse. Antibiotics was ordered. MD Mills was later notified that pt triggered sepsis due to now being hypotensive. Antibiotics administered. Additional 1L NS bolus was ordered and administered. Levophed also ordered if pt remained hypotensive. MD Bey was also notified of pt status. MD stated to give blood transfusion. Pt was given tylenol supp 650 mg. Blood was started. Pt tolerated 1st unit well. Has remained on levophed gtt. Pt is currently on 16 mcg/min at this time. 2nd unit is currently transfusing. MD Mills ordered additional 3rd unit to be transfused.
[2020-12-26 06:28] LABS: Activated Partial Thrombo Time 53.9 seconds (22.8-30.6)
--- NOTE | 2020-12-26 06:33 | PC.NURSE ---
Spoke with [facility] about results of PTT. No changes at this time.
--- NOTE | 2020-12-26 08:34 | HMH.PHACONS ---
- Pharmacy Consult Date: 12/26/20 Time: 08:34 Referring provider: MARIA E Reason for Consult:: VANCOMYCIN DOSING Allergies and ADEs:: Allergies Allergy/AdvReac Type Severity Reaction Status Date / Time metronidazole [From Flagyl] Allergy Severe Swelling Verified 12/24/20 18:10 of Lip/Tongue/Throat sumatriptan [From Imitrex] Allergy Severe stopped Verified 12/24/20 18:10 breathing Home Medications:: Home Medications Medication Instructions Recorded Confirmed Type baclofen 20 mg tablet 20 mg PO BID 10/17/20 12/24/20 History glycopyrrolate 1 mg tablet 1 mg PO TID 10/17/20 12/24/20 History omeprazole 20 mg capsule,delayed 20 mg PO DAILY 10/17/20 12/24/20 History release pyridoxine (vitamin B6) 100 mg 100 mg PO DAILY tab 10/17/20 12/24/20 History tablet thiamine HCl (vitamin B1) 100 mg 100 mg PO DAILY 10/17/20 12/24/20 History tablet Aspirin [Aspirin 81mg chewable 81 mg PO DAILY 12/24/20 12/24/20 History tab] Cariprazine HCl [Vraylar] 3 mg PO DAILY 12/24/20 12/24/20 History Clopidogrel Bisulfate [Plavix 75mg 75 mg PO DAILY 12/24/20 12/24/20 History Tab] Gabapentin 800 mg PO TID 12/24/20 12/24/20 History Metoprolol Tartrate 50 mg PO BID 12/24/20 12/24/20 History Nystatin 5 ml PO TID 12/24/20 12/24/20 History Rosuvastatin Calcium 10 mg PO DAILY 12/24/20 12/24/20 History Height: 1.73 m Weight: 88.904 kg Laboratory Results:: Laboratory Results - last 24 hr 12/24/20 11:58: Activated Clotting Time 305 H* 12/24/20 12:41: Activated Clotting Time 341 H* 12/24/20 13:18: Activated Clotting Time 133 H D 12/24/20 13:37: Activated Clotting Time 313 H* D 12/25/20 07:00: Blood Type Confirm A Positive 12/25/20 11:35: Blood Type A Positive, Antibody Screen Negative, Crossmatch (AHG) See Detail 12/25/20 11:35: APTT 24.2 12/25/20 14:15: APTT 117.2 H* 12/25/20 14:53: WBC 16.4 H D, RBC 2.24 L, Hgb 7.1 L D, Hct 21.7 L, MCV 97.0, MCH 31.7 H, MCHC 32.7, RDW 14.0, Plt Count 215, MPV 8.6, Neut % (Auto) 68.9, Lymph % (Auto) 24.9, [place] % (Auto) 5.3, Eos % (Auto) 0.4, Baso % (Auto) 0.5, Neut # (Auto) 11.3 H, Lymph # (Auto) 4.1, [place] # (Auto) 0.9, Eos # (Auto) 0.1, Baso # (Auto) 0.1, Total Counted 100, Neutrophils % (Manual) 64, Lymphocytes % (Manual) 34, Monocytes % (Manual) 1 L, Eosinophils % (Manual) 1, Platelet Estimate Normal, RBC Morphology Normal 12/25/20 19:10: APTT 27.1 12/25/20 19:25: Lactate 1.0 12/26/20 00:10: WBC 16.5 H, RBC 2.07 L, Hgb 6.4 L*, Hct 20.6 L*, MCV 99.6 H, MCH 31.1, MCHC 31.3 L, RDW 14.2, Plt Count 193, MPV 8.9, Neut % (Auto) 62.9, Lymph % (Auto) 31.0, [place] % (Auto) 5.4, Eos % (Auto) 0.3, Baso % (Auto) 0.4, Neut # (Auto) 10.4 H, Lymph # (Auto) 5.1 H, [place] # (Auto) 0.9, Eos # (Auto) 0.1, Baso # (Auto) 0.1, Total Counted 100, Neutrophils % (Manual) 75, Lymphocytes % (Manual) 20, Monocytes % (Manual) 5, Platelet Estimate Normal, Anisocytosis 1+ 12/26/20 05:47: APTT 53.9 H* Medical History: Reports:: Anxiety, Coronary Artery Disease, Depression, Hyperlipidemia, Hypertension Denies:: Cancer, Diabetes Mellitus Type 1, Diabetes Mellitus Type 2, Internal Pacemaker, MRSA, Seizures Assessment and Plan (1) Blood loss anemia Status: Acute Category: Medical Code(s): 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 transplanted heart: [place] heart Associated angina: without angina Qualified Code(s): I25.10 - Atherosclerotic heart disease of [place] coronary artery without angina pectoris Category: Medical Code(s): I25.10 - Atheros
--- NOTE | 2020-12-26 08:53 | CT_ITS ---
PROCEDURE: CT HEAD/BRAIN WO CON CLINICAL INDICATION: worsening loss of vision COMPARISON: CT CT HEAD/BRAIN WO CON from 12/25/2020 TECHNIQUE: Axial images obtained. All CT scans at the facility use one or more dose reduction, viz: automated exposure control, ma/kV adjustment per patient size (including targeted exams where dose is matched to indication, i.e. head), or iterative reconstruction technique. FINDINGS: Low-density changes have developed in the right occipital lobe medially and along the superior aspect of the cerebellum posteriorly on both sides consistent with areas of acute infarction. There is also some mottled decreased density in the left occipital lobe inferiorly. These findings are worrisome for basilar artery occlusion with infarction. CTA may confirm. A small area of decreased density also noted in the inferior aspect of the right cerebellum at 8 mm consistent with an area of infarction.. No intracranial hemorrhage. There is vague decreased attenuation in the left temporal lobe centrally nonspecific. Ethmoid mucosal thickening and mild maxillary mucosal thickening noted. IMPRESSION: Interval development of bilateral occipital infarction right more extensive than left with bilateral cerebellar infarctions. Basilar artery occlusion could cause this finding. CTA may confirm. Odalys the patient's nurse was given this report by telephone 12/26/2020 10:10 a.m.. Sec Dictated by: Damion Lockhart MD 12/26/2020 10:14 Damion Lockhart MD in [place] 12/26/2020 10:14
[2020-12-26 09:19] LABS: Hematocrit 30.9 % (37.0-47.0)
--- NOTE | 2020-12-26 09:40 | HMH.PNCARD ---
Subjective Date: 12/26/20 Time: 08:30 Principal diagnosis: retroperitoneal bleed Interval history: This is a 55-year-old female who was admitted to the hospital after an outpatient bilateral iliofemoral runoff because she had a retroperitoneal bleed from her right iliac artery. A coated stent was placed to the right iliac artery to seal a stent induced perforation. The patient was started on a heparin drip yesterday after she was found to be significantly anemic and did not have a pulse in her right lower extremity. There was concern that the patient would be hypercoagulable because of her anemia and we wanted to avoid stent thrombosis in her right lower extremity. The heparin drip was initiated and later in the day the patient's foot did warm up some and a right posterior tibialis pulse was palpated by Dr. Villatoro. The patient had some blurry vision yesterday and was stumbling. A CT of her brain was obtained which was normal. The patient had issues with IV access yesterday as well as a fever and hypotension and the 2 units of blood that were ordered yesterday morning were not given until through the night last night. The patient's fever and hypotension are most likely a result of her significant anemia and resorption of the blood from her retroperitoneal bleed. The patient has now been transfused with 3 units of packed red blood cells. This morning she is complaining of worsening of her vision. She states that she can tell that I am standing in front of her but I am very blurry and she cannot see me. The patient states she also has some numbness in her bilateral fingers. She reports severe abdominal pain which is most likely from her retroperitoneal bleed. She states that she has a little bit of pain in her right foot as well which has been persistent since yesterday but is a little bit better. She denies any chest pain or pressure. She states that she has had some intermittent shortness of breath as well. She denies any edema. She denies any chills, nausea, vomiting, diarrhea, PND orthopnea. Exam Vital signs and Labs for Last 24 Hours: Temp Pulse Resp BP Pulse Ox 100.1 F H 114 H 16 116/78 95 12/26/20 08:55 12/26/20 08:55 12/26/20 08:55 12/26/20 08:55 12/26/20 08:55 Laboratory Results - last 24 hr 12/24/20 11:58: Activated Clotting Time 305 H* 12/24/20 12:41: Activated Clotting Time 341 H* 12/24/20 13:18: Activated Clotting Time 133 H D 12/24/20 13:37: Activated Clotting Time 313 H* D 12/25/20 07:00: Blood Type Confirm A Positive 12/25/20 11:35: Blood Type A Positive, Antibody Screen Negative, Crossmatch (AHG) See Detail 12/25/20 11:35: APTT 24.2 12/25/20 14:15: APTT 117.2 H* 12/25/20 14:53: WBC 16.4 H D, RBC 2.24 L, Hgb 7.1 L D, Hct 21.7 L, MCV 97.0, MCH 31.7 H, MCHC 32.7, RDW 14.0, Plt Count 215, MPV 8.6, Neut % (Auto) 68.9, Lymph % (Auto) 24.9, [place] % (Auto) 5.3, Eos % (Auto) 0.4, Baso % (Auto) 0.5, Neut # (Auto) 11.3 H, Lymph # (Auto) 4.1, [place] # (Auto) 0.9, Eos # (Auto) 0.1, Baso # (Auto) 0.1, Total Counted 100, Neutrophils % (Manual) 64, Lymphocytes % (Manual) 34, Monocytes % (Manual) 1 L, Eosinophils % (Manual) 1, Platelet Estimate Normal, RBC Morphology Normal 12/25/20 19:10: APTT 27.1 12/25/20 19:25: Lactate 1.0 12/26/20 00:10: WBC 16.5 H, RBC 2.07 L, Hgb 6.4 L*, Hct 20.6 L*, MCV 99.6 H, MCH 31.1, MCHC 31.3 L, RDW 14.2, Plt Count 193, MPV 8.9, Neut % (Auto) 62.9, Lymph % (Auto) 31.0, [place] % (Auto) 5.4, Eos % (Auto) 0.3, Baso % (Auto) 0.4, Neut # (Auto) 10.4 H, Lymph # (Auto) 5.1 H, [place] # (Auto) 0.9, Eos # (Auto) 0.1, Baso # (Auto) 0.1, Total Counted 100, Neutrophils % (Manual) 75, Lymphocytes % (Manual) 20, Monocytes % (Manual) 5, Platelet Estimate Normal, Anisocytosis 1+ 12/26/20 05:47: APTT 53.9 H* 12/26/20 09:00: Hct 30.9 L I & O for Last 24 hours: Intake & Output 12/23/20 12/24/20 12/25/20 12/26/20 23:59 23:59 23:59 23:59 Intake Total 780 / 780 600 / 600 Output Total 1450 / 1450 900 / 900 Balance -
[2020-12-26 10:14] LABS: Hemoglobin 9.8 g/dL (12.2-16.2)
--- NOTE | 2020-12-26 10:53 | HMH.DCSUM ---
General - General Admission date:: 12/24/20 Discharge date: 12/26/20 HPI HPI: This is a 55-year-old white female who came in as an outpatient yesterday and underwent bilateral iliofemoral runoff. The patient had reconstruction of her bilateral iliacs as well as stenting to her right brachial artery in her upper extremity. Following the procedure the patient did have a retroperitoneal bleed from her right iliac artery. So the patient subsequently had a coated stent placed to the right external iliac artery to seal a stent induced perforation. The patient is complaining of pain in her right groin and her right foot. She states that she was having the right groin pain prior to coming into the hospital. She states that she hit her groin area before the intervention and the pain has just now significantly worsened. She is also complaining of pain in her right foot which she states is new. On palpation the patient states that she is having severe pain. Her right foot is cold to touch. I cannot palpate or Doppler a pulse in the right lower extremity. I cannot palpate a pulse in her right femoral artery either. She denies any chest pain or pressure. She denies any shortness of breath or edema. She denies any fever, chills, nausea, vomiting, diarrhea, PND or orthopnea. Interventional procedure as noted below (Per Tariq Perez APRN): ANGIOGRAPHIC RESULTS The infrarenal abdominal aorta is mildly atheromatous but patent. The right common iliac artery has distal 50% stenosis with a patent internal iliac artery. The right external iliac artery is subtotally occluded. The right common femoral artery is atheromatous with at least 50% stenosis The left common iliac artery has 50 to 60% distal stenosis with the internal iliac artery widely patent and the external iliac artery subtotally occluded. The left common femoral artery reconstitutes via collaterals in its mid to distal segment The right subclavian artery and axillary arteries are patent The right brachial artery is abruptly occluded IMPRESSION Bilateral aortoiliac disease as described above Successful stenting of the right common and external iliac artery as described above reducing the subtotal occlusion to 0% Successful stenting of the left common and external iliac artery as described above reducing the subtotal occlusions to 0% Occlusion of the right brachial artery Successful drug-coated balloon angioplasty of the right brachial artery occlusion followed by bare-metal stent deployment reducing the 100% occlusion to 0% Successful placement of a coated stent in the right external iliac artery to seal a stent induced perforation PLAN 1. Aspirin Plavix 2. Immediate cessation of tobacco products 3. LDL less than 55 4. Cardiac rehabilitation 5. Avoidance of tobacco products 6. Risk factor modification Hospital Course Hospital Course: Ordering Physician: Sera Perez APRN Date of Service: 12/26/20 Procedure(s): CT head/brain wo con Accession Number(s): [id number] cc: Sera Perez APRN; Damion Lockhart MD; Buffy Stark APRN~ PROCEDURE: CT HEAD/BRAIN WO CON CLINICAL INDICATION: worsening loss of vision COMPARISON: CT CT HEAD/BRAIN WO CON from 12/25/2020 TECHNIQUE: Axial images obtained. All CT scans at the facility use one or more dose reduction, viz: automated exposure control, ma/kV adjustment per patient size (including targeted exams where dose is matched to indication, i.e. head), or iterative reconstruction technique. FINDINGS: Low-density changes have developed in the right occipital lobe medially and along the superior aspect of the cerebellum posteriorly on both sides consistent with areas of acute infarction. There is also some mottled decreased density in the left occipital lobe inferiorly. These findings are worrisome for basilar artery occlusion with infarction. CTA may confirm. A small area of decreased density
--- NOTE | 2020-12-26 12:36 | PC.NURSE ---
attempted to call report to at 1123. STaff states that they will have to call [facility] back. called for report [id number]. [facility] contacted at 1210. [facility] arrived at 1300. left at 1320 .
--- NOTE | 2020-12-26 17:01 | PC.NURSE ---
received notification from dr villela at 1010 that the pt had a critical reading on CT of head. pt had an extensive stroke that includes the R occipital lobe, bilateral cerebellum and the left occipital lobe) Chiki Perez was notified face to face of results at 1015 Philly Stark was notified via telephone at 1024. was notified that pt was to be transferred to ER and was accepted by Dr tee. pt was also to be transported by air.
--- NOTE | 2020-12-26 20:54 | PC.NURSE ---
late entry: During am rounds with Philly Stark, pt informed her that she was still having issues with her vision. Buffy states she was aware of pt having blurred vision upon questioning pt, she states that she is now no longer able to see anything . Buffy and Sera walker wrote orders for pt to have a stat ct of head.
--- NOTE | 2020-12-26 22:11 | PC.WOUNDNOTE ---
attempted to wean pt levophed drip off at this time. unsuccessful. drip restarted
== END 2020-12-26 13:20 | disposition short-term general hospital (02) | DRG 908 ==
LOC: 2ND 17:37
PROVIDERS: Family Medicine; Internal Medicine; Nurse Practitioner Family; Admitting Provider Emergency Medicine; PCP Nurse Practitioner Family; Visit Provider Emergency Medicine
DX: I97.51 Accidental puncture and laceration of a circulatory system organ or structure during a circulatory system procedure; I70.92 Chronic total occlusion of artery of the extremities; D62 Acute posthemorrhagic anemia; I97.821 Postprocedural cerebrovascular infarction following other surgery; I70.213 Atherosclerosis of native arteries of extremities with intermittent claudication, bilateral legs; I10 Essential (primary) hypertension; Z20.822 Contact with and (suspected) exposure to COVID-19; F17.210 Nicotine dependence, cigarettes, uncomplicated; I25.10 Atherosclerotic heart disease of native coronary artery without angina pectoris; G47.33 Obstructive sleep apnea (adult) (pediatric); E78.2 Mixed hyperlipidemia; R40.0 Somnolence; I77.1 Stricture of artery; Y83.1 Surgical operation with implant of artificial internal device as the cause of abnormal reaction of the patient, or of later complication, without mention of misadventure at the time of the procedure; I95.81 Postprocedural hypotension; Z71.6 Tobacco abuse counseling
CPT/HCPCS: 36415; 37221; 37223; 37236; 70450; 71045; 80048; 81001; 83605; 85007; 85014; 85018; 85025; 85347; 85730; 86850; 87040; 93926; 94640; 99152; 99153; C1725; C1766; C1769; C1874; C1876; C1894; J1644; J2405; J2543; J3370; P9016; Q9966; U0003

== ENCOUNTER → 2021-06-14 16:00 | Outpatient (CLI) | payer MEDICARE, SELFPAY ==
[2021-06-14 19:02] LABS: Basophils # 0.1 K/mm3 (0-0.2); Basophils % 0.8 % (0.1-2.0); Eosinophils # 0.3 K/mm3 (0.0-0.4); Eosinophils % 4.1 % (0.1-12.0); Hemoglobin 15.8 g/dL (12.2-16.2); Lymphocytes # 2.6 K/mm3 (0.7-4.5); Lymphocytes % 34.9 % (10-50); Mean Corpuscular Hemoglobin 31.5 pg (27.0-31.2); Mean Corpuscular Volume 95.5 fl (81-99); Monocytes # 0.5 K/mm3 (0.1-1.0); Monocytes % 6.3 % (1.7-9.3); Neutrophils # 3.9 K/mm3 (1.8-7.8); Neutrophils % 53.9 % (37.0-80.0); Platelet Count 261 K/mm3 (142-424); Red Blood Count 5.03 M/mm3 (4.20-5.40); Red Cell Distribution Width 13.6 % (11.5-17.5); White Blood Count 7.3 K/mm3 (4.8-10.8)
[2021-06-14 19:34] LABS: Alanine Aminotransferase 28 U/L (12-78); Albumin Level 4.7 g/dl (3.5-5.0); Albumin/Globulin Ratio 1.5 (1.1-1.8); Alkaline Phosphatase 119 U/L (38-126); Anion Gap 17.3 mEq/L (5-15); Aspartate Amino Transferase 33 U/L (14-36); Bilirubin,Total 0.6 mg/dl (0.2-1.3); Blood Urea Nitrogen 7 mg/dl (7-17); Calcium 9.7 mg/dl (8.4-10.2); Carbon Dioxide 25 mmol/L (22.0-30.0); Chloride 105 mmol/L (98-107); Chol/HDL Ratio 5.9 (1-3.5); Cholesterol 202 mg/dl (140-200); Estimated Glomerular Filt Rate 58 ml/min (>60); GFR (African American) 70 ML/MIN (>60); Globulin 3.1 g/dL (1.3-3.2); Glucose 68 mg/dl (74-100); HDL Cholesterol 34 mg/dl (40-60); Potassium 4.3 mmoL/L (3.5-5.1); Sodium 143 mmol/L (136-145); Total Protein,Serum 7.8 g/dl (6.3-8.2); Triglycerides 298 mg/dl (30-150); VLDL Cholesterol 60 mg/dL (0-40)
[2021-06-14 19:45] LABS: Direct LDL Cholesterol 115.05 mg/dL (100-129)
[2021-06-14 19:51] LABS: T4 (Thyroxine) 8.6 ug/dl (5.53-11.0)
[2021-06-14 20:05] LABS: Thyroid Stimulating Hormone 1.63 uIU/mL (0.465-4.68)
[2021-06-15 16:14] LABS: Hemoglobin A1C 5.8 % (4.0-6.0)
== END ==
PROVIDERS: Visit Provider Nurse Practitioner Family
DX: R68.89 Other general symptoms and signs (principal); I63.9 Cerebral infarction, unspecified; I70.208 Unspecified atherosclerosis of native arteries of extremities, other extremity; Z79.899 Other long term (current) drug therapy
CPT/HCPCS: 80053; 80061; 83036; 84436; 84443; 85025

== ENCOUNTER → 2021-08-28 10:41 | Outpatient (CLI) | payer MEDICARE, SELFPAY | PROVIDERS: Visit Provider Nurse Practitioner Family | DX: R35.0 Frequency of micturition (principal) | CPT/HCPCS: 87086 ==

== ENCOUNTER → 2022-07-16 23:00 | Outpatient (CLI) | payer MEDICARE, SELFPAY ==
[2022-07-16 19:03] LABS: Barbiturates Screen,Urine Negative ng/ml (<200)
[2022-07-16 19:04] LABS: Cannabinoid Screen,Urine Positive ng/ml (<50)
[2022-07-16 19:05] LABS: Cocaine Screen,Urine Negative ng/ml (<300)
[2022-07-16 19:06] LABS: Opiate Screen,Urine Negative ng/ml (<300)
[2022-07-16 19:07] LABS: Phencyclidine Screen,Urine Negative ng/ml (<25)
[2022-07-16 19:31] LABS: Amphetamine/Metha Screen,Urine Negative ng/ml (<1000); Benzodiazepines Screen,Urine Negative ng/ml (<200)
[2022-07-16 19:32] LABS: Methadone Screen,Urine Negative ng/ml (<300)
--- NOTE | 2023-01-05 13:51 | PC.NURSE ---
Have attempted to reach patient on a number of times about a HST but been unable to leave message. Her voicemail box is full.
== END ==
PROVIDERS: PCP Nurse Practitioner Family; Visit Provider Nurse Practitioner Family
DX: R40.0 Somnolence (principal)
CPT/HCPCS: 80305